=== PATIENT | male | born 1965 | race Caucasian/White ===

== ENCOUNTER 2018-05-03 08:05 | Day surgery (SDC) | payer BC ==
[2018-05-02 12:33] VITALS: BMI 33.2
[2018-05-03] MEDS ORDERED: PROPOFOL 20 ML ONE ×2 (08:14)
[2018-05-03] MEDS ORDERED: LIDOCAINE HCL/PF 2% SDV 5ML VIAL ONE (08:14)
[2018-05-03 09:22] VITALS: TEMP 98.2
[2018-05-03 11:50] VITALS: BP 122/78; PULSE 66
== END 2018-05-03 09:40 | disposition home or self-care (01) ==
LOC: FASU-ENDO 08:05
PROVIDERS: ATTEND Internal Medicine Gastroenterology
PROC: 0DJD8ZZ Inspection of Lower Intestinal Tract, Via Natural or Artificial Opening Endoscopic (ICD-10-PCS; principal; 2018-05-03 08:48)
DX: Z12.11 Encounter for screening for malignant neoplasm of colon (principal); K57.30 Diverticulosis of large intestine without perforation or abscess without bleeding

== ENCOUNTER 2019-10-30 05:08 | Inpatient (IN) | payer BC ==
--- NOTE | 2019-10-30 05:16 | PDOC ---
History of Present Illness - General Chief Complaint: Pain, Acute Stated Complaint: abdominal pain Time Seen by Provider: 10/30/19 05:13 History Source: Patient Exam Limitations: No Limitations - History of Present Illness Initial Comments: 10/30/19 05:45 This is a 54-year-old male who comes in complaining of acute onset severe right upper quadrant pain. Patient said it was acute onset approximately 4 hours ago. Patient had 1 prior episode similar to the this in the past that he has had the cause was not found. Patient has associated nausea diaphoresis and denies any fevers. Patient had one episode of bilious vomiting here in the ED. Allergies: as per nursing notes Past Medical History: none Social history: Lives with family. No smoking. No alcohol. No illicit drugs. Surgical history: None General: No fevers or chills, no weakness, no weight loss HEENT: No change in vision. No sore throat,. No ear pain CardioVascular: no chest discomfort. No shortness of breath Respiratory:No cough, or wheezing. Gastrointestinal: + nausea, +vomiting, nodiarrhea or constipation, No rectal bleeding. + abdominal pain Genitourinary: No dysuria, hematuria, or frequency Musculoskeletal: No joint or muscle pain or swelling Neurologic: No headache, vertigo, dizziness or loss of consciousness Psychiatric: nor depression Skin: No rashes or easy bruising Endocrine: no increased thirst or abnormal weight change Allergic: no skin or latex allergy All other systems reviewed and normal Exam: General: Well-nourished well-developed individual, no acute distress HEENT: Throat: Normal, tonsils normal, no erythema or exudate Neck: Supple, no meningeal signs, no lymphadenopathy Eyes::Pupils equal reactive and round, extraocular motion intact Chest: Nontender to palpation Cardiac: S1-S2 normal, regular rate and rhythm, no murmurs rubs or gallops Respiratory: Lungs clear to auscultation bilateral Abdomen: Soft, nondistended, normal bowel sounds, there is moderate tenderness on palpation of the right upper quadrant epigastric area there is no guarding or rebound. Skin: No rashes Neuro: Alert and oriented x3, CN II - XII intact, nonfocal exam with normal strength, normal sensation, normal reflexes, normal gait, Psych: Normal mood and affect 10/30/19 05:49 10/30/19 06:17 Assessment and plan: This is a 54-year-old male who comes in complaining of acute onset severe right upper quadrant epigastric pain. Patient had one episode of bilious vomiting prior to coming to the ED and one episode in the ED. Work-up was initiated including CBC, comp, EKG, flat and upright abdomen, ultrasound of the gallbladder. Flat and upright shows large amount of stool with some dilated loops of bowel and air-fluid levels constipation versus obstruction will obtain CT to rule out obstruction. EKG shows normal sinus rhythm at a rate of [address]-T wave changes normal intervals normal EKG 10/30/19 06:41 This patient was transferred to Dr. Yuan at 7 AM. Patient's CAT scan is pending and his ultrasound read is pending. Patient is comfortable at this time and clinically stable. Presumptive diagnosis is constipation versus SBO. Case discussed in detail with oncoming Emergency Physician including history, physical exam and ancillary studies. Oncoming Emergency Physician has assumed care for the patient and will complete the evaluation and treatment. Patient is aware of the plan. Pt is clinically unchanged and stable. Past History - Past Medical History Allergies/Adverse Reactions: Allergies Allergy/AdvReac Type Severity Reaction Status Date / Time No Known Allergies Allergy Verified 10/30/19 05:53 Home Medications: Ambulatory Orders Aspirin [Aspirin EC] 81 mg PO DAILY #30 tablet. 07/31/15 Multivitamin [Men's Multi-Vitamin] 1 each PO DAILY tablet 05/31/16 Anemia: No Asthma: No Cancer: No Cardiac Disorders: No CVA: No COPD: No CHF: No Dementia: No Diabetes: No GI Disorders: No Disorders: No HTN: Yes Hypercholesterolemia: Yes (BORDERLINE WITH WT. LOSS/NO MEDS) Kidney Stones: Yes Liver Disease: No Seizures: No Thyroid Disease: No - Surgical History Abdominal Surgery: No Appendectomy: No Cardiac Surgery: No Cholecystectomy: No Lung Surgery: No Neurologic Surgery: No Orthopedic Surgery: No - Immunization History Td Vaccination: Yes - Psycho Social/Smoking Cessation Hx Smoking Status: Yes Smoking History: Current every day smoker Have you smoked in the past 12 months: Yes Number of Cigarettes Smoked Daily: 4 'Breaking Loose' booklet given: 07/31/15 Hx Alcohol Use: No Drug/Substance Use Hx: No Substance Use Type: None Hx Substance Use Treatment: No ED Treatment Course - LABORATORY CBC & Chemistry Diagram: 10/30/19 05:20 10/30/19 05:20 Discharge - Discharge Information Problems reviewed: Yes Clinical Impression/Diagnosis: Abdominal pain Qualifiers: Abdominal location: right upper quadrant Qualified Code(s): R10.11 - Right upper quadrant pain Condition: Stable - Follow up/Referral - Patient Discharge Instructions - Post Discharge Activity
[2019-10-30] MEDS ORDERED: morphine SULFATE 4 MG/ML VIAL ONE (05:20)
[2019-10-30] MEDS ORDERED: ONDANSETRON 4 MG/2 ML VIAL ONE (05:20)
[2019-10-30] MEDS ORDERED: KETOROLAC TROMETHAMINE 30 MG/1 ML VIAL ONE (05:20)
[2019-10-30] MEDS ORDERED: SODIUM CHLORIDE 1,000 ML IV ONE (05:22)
[2019-10-30] MEDS ORDERED: KETOROLAC TROMETHAMINE 30 MG/1 ML VIAL IVPUSH ONE (05:22)
[2019-10-30] MEDS ORDERED: ONDANSETRON 4 MG/2 ML VIAL IVPB ONE (05:22)
[2019-10-30] MEDS ORDERED: morphine CARPU-JECT 4 MG/1 ML DISP.SYRIN IVPUSH ONE (05:22)
[2019-10-30] MEDS ORDERED: morphine CARPU-JECT 2 MG/1 ML DISP.SYRIN IVPUSH ONE (05:51)
[2019-10-30 06:31] LABS: BASO % 0.1 % (0-2.0); EOS % 1.2 % (0-4.5); LYMPH % 9.2 % (8-40); MCH 30.2 pg (25.7-33.7); MCHC 34.7 g/dl (32.0-35.9); MEAN PLT VOLUME 8.1 fl (7.5-11.1); NEUT % 85.5 % (42.8-82.8); PLATELET COUNT 316 K/MM3 (134-434); RBC 5.97 M/mm3 (4.00-5.60); RDW 12.8 % (11.9-15.9); WHITE BLOOD COUNT 13.5 K/mm3 (4.0-10.0)
[2019-10-30 06:37] LABS: ALBUMIN 4.5 g/dl (3.4-5.0); ALK PHOS 145 U/L (45-117); ANION GAP 6 MMOL/L (8-16); BILIRUBIN,TOTAL 0.5 mg/dL (0.2-1); BLOOD UREA NITROGEN 17.5 mg/dL (7-18); CALCIUM 10.6 mg/dL (8.5-10.1); CHLORIDE 98 mmol/L (98-107); CO2 36 mmol/L (21-32); CREATININE 1.1 mg/dL (0.55-1.3); GLUCOSE,RANDOM 122 mg/dL (74-106); LIPASE 115 U/L (73-393); POTASSIUM 4.7 mmol/L (3.5-5.1); SGOT/AST 20 U/L (15-37); SGPT/ALT 35 U/L (13-61); SODIUM 139 mmol/L (136-145); TOT PROT 7.8 g/dl (6.4-8.2)
[2019-10-30 06:55] LABS: AMORP URATES 2+ /hpf (NONE SEEN)
[2019-10-30] MEDS ORDERED: SODIUM CHLORIDE 1,000 ML IV SCH (10:30)
[2019-10-30] MEDS ORDERED: SODIUM CHLORIDE 0.9% 1000 ML INFUS.BAG IV ONE (10:31)
--- NOTE | 2019-10-30 10:31 | PDOC ---
*Physical Exam - Vital Signs Last Vital Signs Temp Pulse Resp BP Pulse Ox 101.9 F H 51 L 16 119/65 98 10/30/19 09:50 10/30/19 09:51 10/30/19 09:51 10/30/19 09:51 10/30/19 09:51 - Physical Exam 10/30/19 10:31 awake alert lungs clear bilat heart rrr no mrg abd soft mild epigastric upper abd ttp. no rebound no guarding. ext wwp. Heart Score/ECG Review #1 General ECG Interpretation: Sinus Rhythm, Normal Rate (63), Normal Intervals, No acute ischemic changes ED Treatment Course - LABORATORY CBC & Chemistry Diagram: 10/31/19 07:29 10/31/19 07:29 - ADDITIONAL ORDERS Additional order review: Laboratory Results 10/30/19 10/30/19 10/30/19 06:40 05:20 05:20 Sodium Potassium Chloride Carbon Dioxide Anion Gap BUN Creatinine Est GFR (CKD-EPI)AfAm Est GFR (CKD-EPI)NonAf Random Glucose Lactic Acid 2.1 H Calcium Total Bilirubin AST ALT Alkaline Phosphatase Creatine Kinase Troponin I Total Protein Albumin Lipase Cancelled Urine Color Shell Urine Appearance Slightly Urine pH 8.5 H Urine Protein 2+ H Urine Glucose (UA) Negative Urine Ketones Negative Urine Blood Negative Urine Nitrite Negative Urine Bilirubin 1+ H Urine Urobilinogen 1.0 Ur Leukocyte Esterase Negative Urine RBC No Result Required. Urine WBC 0-2 Amorphous Urates 2+ 10/30/19 10/30/19 05:20 05:20 Sodium 139 Potassium 4.7 Chloride 98 Carbon Dioxide 36 H Anion Gap 6 L BUN 17.5 Creatinine 1.1 Est GFR (CKD-EPI)AfAm 88.98 Est GFR (CKD-EPI)NonAf 76.77 Random Glucose 122 H Lactic Acid Calcium 10.6 H Total Bilirubin 0.5 AST 20 ALT 35 Alkaline Phosphatase 145 H Creatine Kinase 106 Troponin I < 0.02 Cancelled Total Protein 7.8 Albumin 4.5 Lipase 115 Urine Color Urine Appearance Urine pH Urine Protein Urine Glucose (UA) Urine Ketones Urine Blood Urine Nitrite Urine Bilirubin Urine Urobilinogen Ur Leukocyte Esterase Urine RBC Urine WBC Amorphous Urates 10/30/19 05:20 RBC 5.97 H MCV 87.0 MCHC 34.7 RDW 12.8 MPV 8.1 Neutrophils % 85.5 H Lymphocytes % 9.2 D Monocytes % 4.0 Eosinophils % 1.2 Basophils % 0.1 - Medications Given in the ED: ED Medications Discontinued Medications Generic Name Dose Route Start Last Admin Trade Name Khadar PRN Reason Stop Dose Admin Sodium Chloride 1,000 mls @ 1,000 mls/hr 10/30/19 05:22 10/30/19 05:30 Normal Saline - IV 10/30/19 06:21 1,000 mls/hr .Q1H ONE Administration Ketorolac Tromethamine 30 mg 10/30/19 05:22 10/30/19 05:59 Toradol Injection - IVPUSH 10/30/19 05:23 30 mg ONCE ONE Administration Morphine Sulfate 4 mg 10/30/19 05:22 10/30/19 06:00 Morphine Injection - IVPUSH 10/30/19 05:23 Not Given ONCE ONE Morphine Sulfate 2 mg 10/30/19 05:51 10/30/19 06:00 Morphine Injection - IVPUSH 10/30/19 05:52 2 mg ONCE ONE Administration Ondansetron HCl 8 mg 10/30/19 05:22 10/30/19 06:00 Zofran Injection IVPB 10/30/19 05:23 8 mg ONCE ONE Administration Medical Decision Making - Medical Decision Making 10/30/19 10:32 54 yo male no past surgical history here with c/o constipation abd pain and n/v x 2. was seen by overnight attending. assumed care of pt at 7 am. was evaluated prior to my arrival with us which showed fatty liver, normal gallbladder. and xray showing air fluid levels, large stool in colon. ct a/p pending. ct a/p with partial sbo at level terminal ileum. d/w dr Carrion pcp, recomemnd admit to hospitalist. d/w surgery [facility] organ[facility] dr Cardona. recommend trial of PO contrast to bettter llucidate source of obstruction and location. will trial small po contrast if tolerating. iv hdyration ordered. will admit to hospitalist. microblog for admission sent. Discharge - Discharge Information Problems reviewed: Yes Clinical Impression/Diagnosis: Partial small bowel obstruction Abdominal pain Qualifiers: Abdominal location: right upper quadrant Qualified Code(s): R10.11 - Right upper quadrant pain Condition: Improved - Admission Yes - Follow up/Referral - Patient Discharge Instructions - Post Discharge Activity
--- NOTE | 2019-10-30 11:23 | EKG ---
Test Reason : Blood Pressure : / mmHG Vent. Rate : 063 BPM Atrial Rate : 063 BPM P-R Int : 144 ms QRS Dur : 086 ms QT Int : 414 ms P-R-T Axes : 016 012 026 degrees QTc Int : 423 ms NORMAL SINUS RHYTHM NORMAL ECG NO PREVIOUS ECGS AVAILABLE Confirmed by Domingo Mares MD ([id number]) on 10/30/2019 11:22:52 AM Referred By: YANE PATEL Confirmed By:Domingo Mares MD
[2019-10-30 13:34] VITALS: BMI 32.6
--- NOTE | 2019-10-30 17:08 | CONSULT ---
Consult Consult Specialty:: General Surgery Referred by:: Renate Bobo Reason for Consultation:: partial SBO - History of Present Illness Chief Complaint: upper abdominal pain, N/V History of Present Illness: 54yo M with HTN, no abdominal surgeries, presented with upper abdominal pain associated with N/V and possible constipation. He had BM yesterday morning, but was a little less than usual, and he had taken milk of magnesia, but it didn't seem to help. In ER, he was afebrile with normal wbc, and CT with IV but no oral contrast showed possible partial SBO with fluid-filled, dilated distal ileal loops but nondilated proximal SB and colon, without clear source of obstruction. He was given IV fluids and antiemetics, with improvement in his nausea. He was admitted to medicine; surgery was asked to assess. Before being seen by surgery, he was given oral contrast to drink, which he tolerated. He is seen and examined in his room, about to use the bathroom. He reports feeling better, and moving his bowels over the last 4 hours. Pain is now minimal , just some discomfort at times, possibly from all the vomiting earlier. - History Source History Provided By: Patient Limitations to Obtaining History: No Limitations - Past Medical History Cardio/Vascular: Yes: HTN - Past Surgical History Past Surgical History: Yes: Vasectomy (with revision of clip) - Alcohol/Substance Use Hx Alcohol Use: Yes (rarely) History of Substance Use: reports: None - Smoking History Smoking history: Current every day smoker Have you smoked in the past 12 months: Yes Aproximately how many cigarettes per day: 4 (less than half pack per day) - Social History ADL: Independent Home Medications - Allergies Allergies/Adverse Reactions: Allergies Allergy/AdvReac Type Severity Reaction Status Date / Time No Known Allergies Allergy Verified 10/30/19 05:53 - Home Medications Home Medications: Ambulatory Orders Aspirin [Aspirin EC] 81 mg PO DAILY #30 tablet. 07/31/15 Multivitamin [Men's Multi-Vitamin] 1 each PO DAILY tablet 05/31/16 Home Medications (free text): also amlodipine;. multiple supplements/vitamins ( CoQ10, etc) Family Medical History Family History: Unremarkable (noncontributory) Review of Systems - Review of Systems Constitutional: denies: Chills, Fever Eyes: reports: Other (wears contact lenses usually). denies: Recent Change in Vision HENT: denies: Difficult Swallowing, Throat Pain Neck: denies: Swollen Glands, Tenderness Cardiovascular: denies: Chest Pain, Palpitations Respiratory: denies: Cough, SOB Gastrointestinal: reports: Abdominal Pain (with hpi), Nausea, Vomiting. denies : Constipation (had less/smaller BM than usual last time, thought he might be constipated), Diarrhea Genitourinary: denies: Burning, Dysuria Musculoskeletal: denies: Back Pain, Joint Pain, Muscle Pain Integumentary: denies: Change in Color, Rash Neurological: denies: Dizziness, Headache Psychiatric: denies: Anxiety, Depression Physical Exam Vital Signs: Vital Signs Temperature 97.8 F 10/30/19 13:00 Pulse Rate 50 L 10/30/19 13:00 Respiratory Rate 16 10/30/19 13:00 Blood Pressure 111/62 10/30/19 13:00 O2 Sat by Pulse Oximetry (%) 99 10/30/19 13:09 Constitutional: Yes: Well Nourished, No Distress, Calm Eyes: Yes: Conjunctiva Clear, EOM Intact HENT: Yes: Atraumatic, Normocephalic Neck: Yes: Supple, Trachea Midline Cardiovascular: Yes: Regular Rate and Rhythm Respiratory: Yes: Regular, CTA Bilaterally Gastrointestinal: Yes: Normal Bowel Sounds, Soft. No: Distention, Tenderness, Tenderness, Epigastrium ...Rectal Exam: Yes: Deferred Renal/: No: CVA Tenderness - Left, CVA Tenderness - Right Musculoskeletal: No: Joint Stiffness, Joint Swelling Extremities: No: Cool, Cyanosis Edema: No Peripheral Pulses WNL: Yes Integumentary: No: Jaundice, Rash Neurological: Yes: Alert, Oriented. No: Unsteady Gait Psychiatric: Yes: Alert, Oriented Labs: CBC, BMP 10/30/19 05:20 10/30/19 05:20 Urine Test Results Urine Color Shell 10/30/19 06:40 Urine Appearance Slightly 10/30/19 06:40 Urine pH 8.5 (4.5-8) H 10/30/19 06:40 Urine Protein 2+ (NEGATIVE) H 10/30/19 06:40 Urine Glucose (UA) Negative (NEGATIVE) 10/30/19 06:40 Urine Ketones Negative (NEGATIVE) 10/30/19 06:40 Urine Blood Negative (NEGATIVE) 10/30/19 06:40 Urine Nitrite Negative (NEGATIVE) 10/30/19 06:40 Urine Bilirubin 1+ (NEGATIVE) H 10/30/19 06:40 Ur Leukocyte Esterase Negative (NEGATIVE) 10/30/19 06:40 Urine RBC No Result Required. 10/30/19 06:40 Urine WBC 0-2 (NEGATIVE) 10/30/19 06:40 lactate 2.1 Imaging - Results Cat Scan: Report Reviewed, Image Reviewed (dilated distal ileal loops with fecalized area of distal ileum, shortly before TI, no apparent masses; nondilated proximal SB or stomach (some MOM in prox SB), air and stool throughout nondilated colon; no free air or fluid, normal appendix) Problem List - Problems (1) Partial small bowel obstruction Assessment/Plan: admitted to medicine was able to drink oral contrast earlier today with no further N/V will get AXR now to assess passage of contrast he has been having BMs for last several hours, minimal residual abdominal pain, distention resolved saw peanuts in his stool from couple days ago passing gas doubt true/clinically significant obstruction if contrast is now in colon, being evacuated, will start back on po and advance as tolerated if not, would consider repeating CT discussed with Blaine Engel NP Code(s): K56.600 - PARTIAL INTESTINAL OBSTRUCTION, UNSPECIFIED TO CAUSE (2) Upper abdominal pain Assessment/Plan: much improved Code(s): R10.10 - UPPER ABDOMINAL PAIN, UNSPECIFIED (3) Nausea and vomiting Assessment/Plan: resolved Code(s): R11.2 - NAUSEA WITH VOMITING, UNSPECIFIED Qualifiers: Vomiting type: unspecified Vomiting Intractability: non-intractable Qualified Code(s): R11.2 - Nausea with vomiting, unspecified (4) Hypertension Code(s): I10 - ESSENTIAL (PRIMARY) HYPERTENSION Qualifiers: Hypertension type: essential hypertension Qualified Code(s): I10 - Essential (primary) hypertension
--- NOTE | 2019-10-30 18:18 | HP ---
CHIEF COMPLAINT: Abdominal pain PCP: Dr. Beltran HISTORY OF PRESENT ILLNESS: This is a 54-year-old male with a PMH significant for HTN, presented to the ED with a complaint of acute onset of right upper quadrant epigastric pain x 1 day. Patient had one episode of bilious vomiting prior to coming to the ED and one episode in the ED. ER course was notable for: (1) WBC 13.5k (2) Lactic acid 2.1 Recent Travel: No PAST MEDICAL HISTORY: Hyperlipidemia PAST SURGICAL HISTORY: None reported Social History: Smoking: Alcohol: Drugs: Allergies No Known Allergies Allergy (Verified 10/30/19 05:53) HOME MEDICATIONS: Home Medications Medication Instructions Recorded Aspirin [Aspirin EC] 81 mg PO DAILY #30 tablet. 07/31/15 Multivitamin [Men's Multi-Vitamin] 1 each PO DAILY tablet 05/31/16 REVIEW OF SYSTEMS CONSTITUTIONAL: Absent: fever, chills, diaphoresis, generalized weakness, malaise, loss of appetite, weight change HEENT: Absent: rhinorrhea, nasal congestion, throat pain, throat swelling, difficulty swallowing, mouth swelling, ear pain, eye pain, visual changes CARDIOVASCULAR: Absent: chest pain, syncope, palpitations, irregular heart rate, lightheadedness , peripheral edema RESPIRATORY: Absent: cough, shortness of breath, dyspnea with exertion, orthopnea, wheezing, stridor, hemoptysis GASTROINTESTINAL: +abdominal pain, vomiting Absent: abdominal distension, nausea, diarrhea, constipation, melena, hematochezia GENITOURINARY: Absent: dysuria, frequency, urgency, hesitancy, hematuria, flank pain, genital pain MUSCULOSKELETAL: Absent: myalgia, arthralgia, joint swelling, back pain, neck pain SKIN: Absent: rash, itching, pallor HEMATOLOGIC/IMMUNOLOGIC: Absent: easy bleeding, easy bruising, lymphadenopathy, frequent infections ENDOCRINE: Absent: unexplained weight gain, unexplained weight loss, heat intolerance, cold intolerance NEUROLOGIC: Absent: headache, focal weakness or paresthesias, dizziness, unsteady gait, seizure, mental status changes, bladder or bowel incontinence PSYCHIATRIC: Absent: anxiety, depression, suicidal or homicidal ideation, hallucinations. PHYSICAL EXAMINATION Vital Signs - 24 hr 10/30/19 10/30/19 10/30/19 05:41 06:30 09:50 Temperature 97.7 F Pulse Rate 81 Pulse Rate [ 60 Left] Respiratory 18 20 Rate Blood Pressure 153/102 H Blood Pressure 123/69 [Right Arm] O2 Sat by Pulse 99 95 Oximetry (%) 10/30/19 10/30/19 10/30/19 09:51 12:31 13:00 Temperature 98.3 F 97.8 F Pulse Rate 50 L Pulse Rate [ 51 L 52 L Left] Respiratory 16 16 16 Rate Blood Pressure 111/62 Blood Pressure 119/65 109/59 L [Right Arm] O2 Sat by Pulse 98 97 Oximetry (%) 10/30/19 13:09 Temperature Pulse Rate Pulse Rate [ Left] Respiratory Rate Blood Pressure Blood Pressure [Right Arm] O2 Sat by Pulse 99 Oximetry (%) GENERAL: Awake, alert, and fully oriented, in no acute distress. HEAD: Normal with no signs of trauma. EYES: Pupils equal, round and reactive to light, extraocular movements intact, sclera anicteric, conjunctiva clear. LUNGS: Breath sounds equal, clear to auscultation bilaterally. No wheezes, and no crackles. No accessory muscle use. HEART: Regular rate and rhythm, normal S1 and S2 without murmur, rub or gallop. ABDOMEN: Soft, nontender, not distended, hypoactive bowel sounds MUSCULOSKELETAL: Normal range of motion at all joints. No bony deformities or tenderness. No CVA tenderness. UPPER EXTREMITIES: 2+ pulses, warm, well-perfused. No cyanosis. No clubbing. No peripheral edema. LOWER EXTREMITIES: 2+ pulses, warm, well-perfused. No calf tenderness. No peripheral edema. NEUROLOGICAL: Cranial nerves II-XII intact. Normal speech. Normal gait observed. Laboratory Results - last 24 hr 10/30/19 10/30/19 10/30/19 05:20 05:20 05:20 WBC 13.5 H RBC 5.97 H Hgb 18.0 H Hct 52.0 H MCV 87.0 MCH 30.2 MCHC 34.7 RDW 12.8 Plt Count 316 MPV 8.1 Absolute Neuts (auto) 11.6 H Neutrophils % 85.5 H Lymphocytes % 9.2 D Monocytes % 4.0 Eosinophils % 1.2 Basophils % 0.1 Nucleated RBC % 0 Sodium 139 Potassium 4.7 Chloride 98 Carbon Dioxide 36 H Anion Gap 6 L BUN 17.5 Creatinine 1.1 Est GFR (CKD-EPI)AfAm 88.98 Est GFR (CKD-EPI)NonAf 76.77 Random Glucose 122 H Lactic Acid Calcium 10.6 H Total Bilirubin 0.5 AST 20 ALT 35 Alkaline Phosphatase 145 H Creatine Kinase 106 Troponin I Cancelled < 0.02 Total Protein 7.8 Albumin 4.5 Lipase 115 Urine Color Urine Appearance Urine pH Urine Protein Urine Glucose (UA) Urine Ketones Urine Blood Urine Nitrite Urine Bilirubin Urine Urobilinogen Ur Leukocyte Esterase Urine RBC Urine WBC Amorphous Urates 10/30/19 10/30/19 10/30/19 05:20 05:20 06:40 WBC RBC Hgb Hct MCV MCH MCHC RDW Plt Count MPV Absolute Neuts (auto) Neutrophils % Lymphocytes % Monocytes % Eosinophils % Basophils % Nucleated RBC % Sodium Potassium Chloride Carbon Dioxide Anion Gap BUN Creatinine Est GFR (CKD-EPI)AfAm Est GFR (CKD-EPI)NonAf Random Glucose Lactic Acid 2.1 H Calcium Total Bilirubin AST ALT Alkaline Phosphatase Creatine Kinase Troponin I Total Protein Albumin Lipase Cancelled Urine Color Shell Urine Appearance Slightly Urine pH 8.5 H Urine Protein 2+ H Urine Glucose (UA) Negative Urine Ketones Negative Urine Blood Negative Urine Nitrite Negative Urine Bilirubin 1+ H Urine Urobilinogen 1.0 Ur Leukocyte Esterase Negative Urine RBC No Result Required. Urine WBC 0-2 Amorphous Urates 2+ ASSESSMENT/PLAN This is a 54-year-old male with a PMH significant for HTN, admitted for partial SBO. Partial small bowel obstruction --10/30 CTAP: partial SBO --given PO contrast and abdominal xray showed contrast in colon --per surgery, start clears, advance to food in am --repeat FUA in am Lactic acidosis --lactic acid 2.1 --IV fluids --repeat in am Hypertension --continue amlodipine FEN Fluids: NS@75mL/hr Electrolytes: replete as indicated Nutritoin: clears; advance as tolerated DVT prophylaxis: SCDs, oob, ambulation Dispo: continues to require in patient care. Full code. Visit type - Emergency Visit Emergency Visit: Yes ED Registration Date: 10/30/19 Care time: The patient presented to the Emergency Department on the above date and was hospitalized for further evaluation of their emergent condition. - New Patient This patient is new to me today: Yes Date on this admission: 10/31/19 - Critical Care Critical Care patient: No
[2019-10-31] MEDS ORDERED: SODIUM CHLORIDE 1,000 ML IV SCH (01:12)
[2019-10-31 08:27] LABS: BASO % 0.2 % (0-2.0); EOS % 3.1 % (0-4.5); HEMATOCRIT 45.3 % (35.4-49); HEMOGLOBIN 15.6 GM/dl (11.7-16.9); LYMPH % 19.7 % (8-40); MCH 30.6 pg (25.7-33.7); MCHC 34.4 g/dl (32.0-35.9); MEAN CELL VOLUME 88.8 fl (80-96); MEAN PLT VOLUME 8.3 fl (7.5-11.1); MONO % 5.5 % (3.8-10.2); NEUT % 71.5 % (42.8-82.8); PLATELET COUNT 236 K/MM3 (134-434); RBC 5.11 M/mm3 (4.00-5.60); RDW 12.1 % (11.9-15.9); WHITE BLOOD COUNT 7.9 K/mm3 (4.0-10.8)
[2019-10-31 08:30] LABS: ALBUMIN 3.1 g/dl (3.4-5.0); BILIRUBIN,TOTAL 0.9 mg/dl (0.2-1); CALCIUM 8.4 mg/dl (8.5-10); CREATININE 0.9 mg/dl (0.55-1.3)
[2019-10-31] MEDS ORDERED: amLODIPine BESYLATE 5 MG TABLET (FP) PO SCH (10:00)
[2019-10-31] MEDS ORDERED: ASPIRIN COATED 81 MG TABLET.EC PO SCH (10:00)
[2019-10-31] MEDS ORDERED: ENOXAPARIN NA (PORCINE) 40 MG/0.4 ML DISP.SYRIN SQ SCH (10:00)
--- NOTE | 2019-10-31 11:39 | PN ---
Progress Note, Physician History of Present Illness: Pt with possible PSBO, no previous abdominal surgeries. AXR last night after PO contrast earlier in day showed contrast in colon, and he has been having frequent BMs. Started on clears last night, tolerated full liquids for breakfast. No N/V, though he does have some central abdominal discomfort. No fevers, no urinary complaints. Lactate normalized with hydration. Seen and examined in bed, resting comfortably. - Current Medication List Current Medications: Active Medications Amlodipine Besylate (Norvasc -) 5 mg PO DAILY [facility] Last Admin: 10/31/19 09:58 Dose: 5 mg Aspirin (Ecotrin -) 81 mg PO DAILY [facility] Last Admin: 10/31/19 09:58 Dose: 81 mg Sodium Chloride (Normal Saline -) 1,000 mls @ 75 mls/hr IV ASDIR [facility] Last Admin: 10/31/19 03:57 Dose: 75 mls/hr - Objective Vital Signs: Vital Signs Temperature 97.4 F L 10/31/19 09:50 Pulse Rate 58 L 10/31/19 09:50 Respiratory Rate 18 10/31/19 09:50 Blood Pressure 115/56 L 10/31/19 09:50 O2 Sat by Pulse Oximetry (%) 95 10/31/19 09:50 Constitutional: Yes: Well Nourished, No Distress, Calm Eyes: Yes: Conjunctiva Clear, EOM Intact HENT: Yes: Atraumatic, Normocephalic Gastrointestinal: Yes: Normal Bowel Sounds, Soft, Tenderness (mild RLQ, LLQ; no verena/guarding). No: Distention, Tenderness, Epigastrium ...Rectal Exam: Yes: Deferred Extremities: No: Cool, Cyanosis Integumentary: No: Jaundice, Rash Neurological: Yes: Alert, Oriented Labs: CBC, BMP 10/31/19 07:29 10/31/19 07:29 CMP Sodium 138 mmol/L (136-145) 10/31/19 07:29 Potassium 5.0 mmol/L (3.5-5.1) 10/31/19 07:29 Chloride 107 mmol/L (98-107) 10/31/19 07:29 Carbon Dioxide 28 mmol/L (21-32) 10/31/19 07:29 Anion Gap 3 MMOL/L (8-16) L 10/31/19 07:29 BUN 13.0 mg/dl (7-18) 10/31/19 07:29 Creatinine 0.9 mg/dl (0.55-1.3) 10/31/19 07:29 Est GFR (CKD-EPI)AfAm 113.41 10/31/19 07:29 Est GFR (CKD-EPI)NonAf 97.85 10/31/19 07:29 Random Glucose 93 mg/dl (74-106) 10/31/19 07:29 Lactic Acid 0.6 mmol/L (0.4-2.0) 10/31/19 07:05 Calcium 8.4 mg/dl (8.5-10) L 10/31/19 07:29 Magnesium 2.0 mg/dL (1.8-2.4) 10/31/19 07:29 Total Bilirubin 0.9 mg/dl (0.2-1) 10/31/19 07:29 AST 14 U/L (15-37) L 10/31/19 07:29 ALT 16 U/L (13-61) 10/31/19 07:29 Alkaline Phosphatase 80 U/L (45-117) 10/31/19 07:29 Creatine Kinase 106 U/L (26-308) 10/30/19 05:20 Troponin I < 0.02 ng/ml (0.00-0.05) 10/30/19 05:20 Total Protein 5.0 g/dl (6.4-8.2) L 10/31/19 07:29 Albumin 3.1 g/dl (3.4-5.0) L 10/31/19 07:29 Lipase 115 U/L (73-393) 10/30/19 05:20 Microbiology 10/30/19 06:40 Urine Culture - Final Urine - Urine Clean Catch NO GROWTH OBTAINED - ....Imaging X-ray: Report Reviewed, Image Reviewed (AXR from last night reviewed - additional film from this morning seen - residual contrast in distal colon and rectum only) Problem List - Problems (1) Partial small bowel obstruction Assessment/Plan: resolved with contrast administration oral contrast in distal colon and rectum, mostly evacuated advance to regular diet mild residual abdominal discomfort may be from earlier N/V pt still moving bowels can probably go home after tolerates 1-2 regular meals advised if significant pain, distention or N/V recur after d/c home, to return for reevaluation discussed with Blaine Engel NP Code(s): K56.600 - PARTIAL INTESTINAL OBSTRUCTION, UNSPECIFIED TO CAUSE (2) Upper abdominal pain Code(s): R10.10 - UPPER ABDOMINAL PAIN, UNSPECIFIED (3) Hypertension Assessment/Plan: on home med Code(s): I10 - ESSENTIAL (PRIMARY) HYPERTENSION Qualifiers: Hypertension type: essential hypertension Qualified Code(s): I10 - Essential (primary) hypertension
--- NOTE | 2019-10-31 12:34 | DS ---
Physical Exam: SUBJECTIVE: Patient seen and examined OBJECTIVE: Vital Signs Period Temp Pulse Resp BP Sys/Brady Pulse Ox Last 24 Hr 97.4 F-98.4 F 50-62 16-18 98-120/51-62 94-99 PHYSICAL EXAM GENERAL: The patient is awake, alert, and fully oriented, in no acute distress. HEAD: Normal with no signs of trauma. EYES: PERRL, extraocular movements intact, sclera anicteric, conjunctiva clear. ENT: Ears normal, nares patent, oropharynx clear without exudates, moist mucous membranes. NECK: Trachea midline, full range of motion, supple. LUNGS: Breath sounds equal, clear to auscultation bilaterally, no wheezes, no crackles, no accessory muscle use. HEART: Regular rate and rhythm, S1, S2 without murmur, rub or gallop. ABDOMEN: Soft, nontender, nondistended, normoactive bowel sounds, no guarding, no rebound, no hepatosplenomegaly, no masses. EXTREMITIES: 2+ pulses, warm, well-perfused, no edema. NEUROLOGICAL: Cranial nerves II through XII grossly intact. Normal speech, gait not observed. PSYCH: Normal mood, normal affect. SKIN: Warm, dry, normal turgor, no rashes or lesions noted. LABS Laboratory Results - last 24 hr 10/31/19 10/31/19 10/31/19 07:05 07:29 07:29 WBC 7.9 RBC 5.11 Hgb 15.6 Hct 45.3 MCV 88.8 MCH 30.6 MCHC 34.4 RDW 12.1 Plt Count 236 D MPV 8.3 D Absolute Neuts (auto) 5.7 Neutrophils % 71.5 Lymphocytes % 19.7 D Monocytes % 5.5 Eosinophils % 3.1 Basophils % 0.2 Sodium 138 Potassium 5.0 Chloride 107 Carbon Dioxide 28 Anion Gap 3 L BUN 13.0 Creatinine 0.9 Est GFR (CKD-EPI)AfAm 113.41 Est GFR (CKD-EPI)NonAf 97.85 Random Glucose 93 Lactic Acid 0.6 Calcium 8.4 L Magnesium 2.0 Total Bilirubin 0.9 AST 14 L ALT 16 Alkaline Phosphatase 80 Total Protein 5.0 L Albumin 3.1 L HOSPITAL COURSE: Date of Admission:10/30/19 Date of Discharge: 10/31/19 Pre hospital course This is a 54-year-old male with a PMH significant for HTN, presented to the ED with a complaint of acute onset of right upper quadrant epigastric pain x 1 day. Patient had one episode of bilious vomiting prior to coming to the ED and one episode in the ED. ER course (1) WBC 13.5k (2) Lactic acid 2.1 Subsequent hospital course This is a 54-year-old male with a PMH significant for HTN, admitted for partial SBO. Partial small bowel obstruction --10/30 CTAP: partial SBO --seen and evaluated by surgery, patient was medical managed with IV fluids and slow advancement of diet --tolerating regular diet at time of discharge Hypertension --continued amlodipine Minutes to complete discharge: 35 Discharge Summary Problems reviewed: Yes Reason For Visit: PARTIAL SMALL BOWEL OBSTRUCTION Current Active Problems Abdominal pain (Acute) Partial small bowel obstruction (Acute) Condition: Improved - Instructions Diet, Activity, Other Instructions: Advance your diet slowly. Only eat those foods that agree with you. Stay well- hydrated and drink plenty of fluids. You should follow up with Dr. Cardona in two weeks. Her contact information is enclosed. Return to the emergency department for any new or worsening symptoms. Referrals: Quang Cardona MD [Staff Physician] - 2 Weeks Disposition: HOME - Home Medications Comprehensive Discharge Medication List: Ambulatory Orders Aspirin [Aspirin EC] 81 mg PO DAILY #30 tablet. 07/31/15 Multivitamin [Men's Multi-Vitamin] 1 each PO DAILY tablet 05/31/16 This patient is new to me today: No Emergency Visit: Yes ED Registration Date: 10/30/19 Care time: The patient presented to the Emergency Department on the above date and was hospitalized for further evaluation of their emergent condition. Critical Care patient: No - Discharge Referral Referred to [facility] No
[2019-10-31 14:23] VITALS: BP 130/70; PULSE 61; TEMP 97.9
== END 2019-10-31 14:24 | disposition home or self-care (01) | DRG 389 ==
LOC: FER 05:08 → FM/S 10:34
PROVIDERS: ADMIT Internal Medicine; ATTEND Nurse Practitioner Acute Care
DX: K56.600 Partial intestinal obstruction, unspecified as to cause (principal); E87.2 Acidosis; I10 Essential (primary) hypertension; F17.210 Nicotine dependence, cigarettes, uncomplicated; R10.11 Right upper quadrant pain; R11.2 Nausea with vomiting, unspecified
CPT/HCPCS: 36415; 74019-TC-FY; 74177-TC; 76705-TC; 80053; 81003; 81015; 82550; 83605; 83690; 83735; 84484; 85025; 87086; 93005; 99285-25; J7030; Q9967

== ENCOUNTER 2022-02-20 11:06 | Emergency (ER) | payer BC ==
[2022-02-20] MEDS ORDERED: SODIUM CHLORIDE 1,000 ML IV STA (11:13)
[2022-02-20] MEDS ORDERED: ACETAMINOPHEN 1000 MG/100 ML BAG IVPB ONE (12:13)
[2022-02-20] MEDS ORDERED: ACETAMINOPHEN INJECTION 100 ML IVPB ONE (12:14)
[2022-02-20 12:38] LABS: HEMATOCRIT 45.7 % (35.4-49); HEMOGLOBIN 16.1 G/dL (11.7-16.9); MCH 30.8 pg (25.7-33.7); MCHC 35.1 g/dl (32.0-35.9); MEAN CELL VOLUME 87.6 fl (80-96); MEAN PLT VOLUME 7.7 fl (7.5-11.1); PLATELET COUNT 261.3 10^3/uL (134-434); RBC 5.22 10^6/uL (4.00-5.60); RDW 13.2 % (11.9-15.9); WHITE BLOOD COUNT 7.6 10^3/uL (4.0-10.8)
[2022-02-20 14:10] VITALS: BP 134/76; PULSE 88; TEMP 98.2; BMI 30.7
[2022-02-20 14:10] LABS: CALCIUM 9.2 mg/dL (8.5-10.1)
[2022-02-20 14:11] LABS: BLOOD UREA NITROGEN 15.2 mg/dL (7-18)
[2022-02-20 14:14] LABS: ALBUMIN 3.7 g/dl (3.4-5.0); CREATININE 0.8 mg/dL (0.55-1.3)
[2022-02-20 14:16] LABS: BILIRUBIN,TOTAL 0.5 mg/dL (0.2-1); PLATELET ESTIMATE ADEQUATE; TOT PROT 6.5 g/dl (6.4-8.2)
== END 2022-02-20 12:50 | disposition home or self-care (01) ==
LOC: FER 11:06
PROC: 3E033GC Introduction of Other Therapeutic Substance into Peripheral Vein, Percutaneous Approach (ICD-10-PCS; principal; 2022-02-20)
DX: T67.5XXA Heat exhaustion, unspecified, initial encounter (principal)
CPT/HCPCS: 36415; 70450-TC; 80053; 84484; 85027; 93005; 99285-25

== ENCOUNTER 2022-04-01 15:29 | Emergency (ER) | payer BC, OTHER ==
[2022-04-01 16:15] VITALS: BP 126/83; PULSE 96; TEMP 98.4; BMI 34.2
== END 2022-04-01 19:15 | disposition home or self-care (01) ==
LOC: FER 15:29
DX: K42.9 Umbilical hernia without obstruction or gangrene (principal)
CPT/HCPCS: 74176-TC; 99284-25

== ENCOUNTER 2022-05-04 22:58 | Emergency (ER) | payer BC ==
[2022-05-04 23:08] VITALS: BP 140/91; PULSE 73; RESP 18; TEMP 98.8; BMI 34.5
[2022-05-04] MEDS ORDERED: LIDOCAINE VISCOUS 2% ORAL/TOP 15 ML UNIT-DOSE CUP ONE (23:12)
[2022-05-04] MEDS ORDERED: MAG HYDROX/AL HYDROX/SIMETH 30 ML UNIT-DOSE CUP ONE (23:12)
[2022-05-04] MEDS ORDERED: MAG HYDROX/AL HYDROX/SIMETH 30 ML UNIT-DOSE CUP PO ONE (23:16)
[2022-05-04] MEDS ORDERED: LIDOCAINE VISCOUS 2% ORAL/TOP 15 ML UNIT-DOSE CUP MM ONE (23:16)
[2022-05-04] MEDS ORDERED: HYOSCYAMINE SULFATE 0.125 MG *ODT PO ONE (23:30)
== END 2022-05-05 00:41 | disposition home or self-care (01) ==
LOC: FER 22:58
DX: R10.10 Upper abdominal pain, unspecified (principal)
CPT/HCPCS: 99283-25

== ENCOUNTER 2022-05-09 10:57 | Day surgery (SDC) | payer BC ==
[2022-05-04 09:53] VITALS: BMI 34.5
[2022-05-09] MEDS ORDERED: GLYCOPYRROLATE 0.2 MG/1 ML VIAL ONE (11:58)
[2022-05-09] MEDS ORDERED: ONDANSETRON 4 MG/2 ML VIAL ONE (11:58)
[2022-05-09 13:11] VITALS: BP 110/78; PULSE 77; RESP 17
== END 2022-05-09 13:11 | disposition home or self-care (01) ==
LOC: FASU-ENDO 10:57
PROVIDERS: ATTEND Internal Medicine Gastroenterology
PROC: 0DB68ZX Excision of Stomach, Via Natural or Artificial Opening Endoscopic, Diagnostic (ICD-10-PCS; 2022-05-09)
PROC: 0DB98ZX Excision of Duodenum, Via Natural or Artificial Opening Endoscopic, Diagnostic (ICD-10-PCS; principal; 2022-05-09 12:09)
DX: K29.50 Unspecified chronic gastritis without bleeding (principal); R10.13 Epigastric pain
CPT/HCPCS: 88305-TC; 88342-TC

== ENCOUNTER 2023-07-04 13:04 | Emergency (ER) | payer BC, OTHER ==
[2023-07-04] MEDS ORDERED: ACETAMINOPHEN 325 MG TABLET (FP) PO ONE (13:19)
[2023-07-04] MEDS ORDERED: ACETAMINOPHEN 325 MG TABLET (FP) ONE (13:26)
[2023-07-04 13:31] VITALS: BP 150/89; PULSE 84; RESP 18; TEMP 98.2; BMI 33.7
== END 2023-07-04 14:20 | disposition home or self-care (01) ==
LOC: FER 13:04
DX: M79.632 Pain in left forearm (principal); W14.XXXA Fall from tree, initial encounter
CPT/HCPCS: 73090-TC-LT-FY; 73110-TC-LT-FY; 99283-25

== ENCOUNTER 2024-03-05 12:22 | Emergency (ER) | payer BC, OTHER ==
[2024-03-05 12:32] VITALS: BP 159/99; PULSE 93; RESP 20; TEMP 98.3; BMI 33.7
[2024-03-05] MEDS ORDERED: ACETAMINOPHEN INJECTION 100 ML IVPB ONE (12:50)
[2024-03-05] MEDS: ACETAMINOPHEN 1000 MG/100 ML BAG IVPB ONE (12:50)
[2024-03-05 13:38] LABS: INR 0.94 (0.83-1.09); PROTHROMBIN TIME (PATIENT) 10.7 SEC (9.7-13.0)
[2024-03-05 13:41] LABS: ACTIVATED PTT 35.2 SECONDS (25.2-36.5); HEMATOCRIT 47.3 % (35.4-49); HEMOGLOBIN 15.9 G/dL (11.7-16.9); MCH 29.4 pg (25.7-33.7); MCHC 33.7 g/dl (32.0-35.9); MEAN CELL VOLUME 87.5 fl (80-96); PLATELET COUNT 251.7 10^3/uL (134-434); RBC 5.41 10^6/uL (4.00-5.60); RDW 13.6 % (11.9-15.9); WHITE BLOOD COUNT 6.8 10^3/uL (4.0-10.8)
[2024-03-05 13:47] LABS: ALBUMIN 4.4 g/dl (3.4-5.0); ALK PHOS 112 U/L (45-117); ANION GAP 9 mmol/L (4-13); BILIRUBIN,TOTAL 0.9 mg/dl (0.2-1); CALCIUM 9.8 mg/dl (8.5-10.1); CHLORIDE 102 mmol/L (98-107); CHOLESTEROL 190 mg/dL (50-200); CO2 27 mmol/L (21-32); CREATININE 0.8 mg/dl (0.6-1.3); GLUCOSE,RANDOM 114 mg/dl (74-106); HDL CHOLESTEROL 32 mg/dL (40-60); LDL CHOLESTEROL (ONLY DFH) 126 mg/dL (5-100); POTASSIUM 3.8 mmol/L (3.5-5.1); SGOT/AST 18 U/L (15-37); SGPT/ALT 30 U/L (7-52); SODIUM 138 mmol/L (136-145); TOT PROT 6.4 g/dl (6.4-8.2)
[2024-03-05 14:07] LABS: PLATELET ESTIMATE ADEQUATE
[2024-03-05] MEDS: FAMOTIDINE 20 MG/50 ML IVPB 20 MG/50 ML MG IVPB ONE (15:44)
[2024-03-05] MEDS ORDERED: FAMOTIDINE 20 MG/50 ML IVPB 20 MG/50 ML MG IVPB ONE (15:45)
== END 2024-03-05 17:02 | disposition home or self-care (01) ==
LOC: FER 12:22
PROC: 3E033GC Introduction of Other Therapeutic Substance into Peripheral Vein, Percutaneous Approach (ICD-10-PCS; principal; 2024-03-05)
PROC: 3E033NZ Introduction of Analgesics, Hypnotics, Sedatives into Peripheral Vein, Percutaneous Approach (ICD-10-PCS; 2024-03-05)
DX: K29.70 Gastritis, unspecified, without bleeding (principal); R51.9 Headache, unspecified; R42 Dizziness and giddiness; R20.2 Paresthesia of skin; R07.9 Chest pain, unspecified; R10.12 Left upper quadrant pain
CPT/HCPCS: 36415; 70551-TC; 71045-TC-FY; 80053; 80061; 83036; 84484; 85027; 85610; 85730; 86850; 86900; 86901; 93005; 99285-25; J0131

== ENCOUNTER 2024-06-03 12:25 | Emergency (ER) | payer BC, OTHER ==
[2024-06-03 12:48] VITALS: BP 133/88; PULSE 84; RESP 18; TEMP 98.4; BMI 35.6
[2024-06-03 14:01] LABS: HEMATOCRIT 52.2 % (35.4-49); HEMOGLOBIN 17.3 G/dL (11.7-16.9); INR 0.95 (0.83-1.09); MCH 29.1 pg (25.7-33.7); MCHC 33.1 g/dl (32.0-35.9); MEAN CELL VOLUME 88.1 fl (80-96); MEAN PLT VOLUME 7.7 fl (7.5-11.1); PLATELET COUNT 257.5 10^3/uL (134-434); PROTHROMBIN TIME (PATIENT) 10.8 SEC (9.7-13.0); RBC 5.93 10^6/uL (4.00-5.60); RDW 13.6 % (11.9-15.9)
[2024-06-03 14:14] LABS: ALBUMIN 4.4 g/dl (3.4-5.0); ALK PHOS 124 U/L (45-117); ANION GAP 8 mmol/L (4-13); BILIRUBIN,TOTAL 0.7 mg/dl (0.2-1); CALCIUM 9.7 mg/dl (8.5-10.1); CHLORIDE 103 mmol/L (98-107); CO2 25 mmol/L (21-32); CREATININE 0.9 mg/dl (0.6-1.3); GLUCOSE,RANDOM 104 mg/dl (74-106); POTASSIUM 4.3 mmol/L (3.5-5.1); SGOT/AST 22 U/L (15-37); SGPT/ALT 36 U/L (7-52); SODIUM 136 mmol/L (136-145); TOT PROT 6.6 g/dl (6.4-8.2)
[2024-06-03 14:58] LABS: PLATELET ESTIMATE ADEQUATE
== END 2024-06-03 14:54 | disposition home or self-care (01) ==
LOC: FER 12:25
DX: R20.2 Paresthesia of skin (principal)
CPT/HCPCS: 36415; 80053; 85027; 85610; 85730; 86850; 86900; 86901; 99283-25